=== PATIENT | female | born 1975 | race Caucasian/White ===

== ENCOUNTER 2020-07-14 10:00 | Outpatient (CLI) | payer BC ==
--- NOTE | 2020-07-14 12:26 | RAD ---
LEFT HIP 2 VIEWS: HISTORY: Hip pain status post training for a marathon. FINDINGS: The hip joint appears well preserved. There are no signs of fracture or other bony findings. IMPRESSION: Unremarkable left hip. If clinically indicated, MRI may be helpful in evaluating for a stress-type r eaction. POS: ASHOK
--- NOTE | 2020-07-14 12:30 | RAD ---
AP PELVIS: Date: 07/14/2020 HISTORY: Patient has been training for a marathon, having pain in right hip and groin region. FINDINGS: Pelvic ring is intact. 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 I do not see any signs of any in sufficiency type fracture. There is a subtle calcification adjacent to the greater trochanter. This c ould indicate a calcific tendinitis related to one of the gluteus tendons. Clinical correlation as to exact area of patient's pain. IMPRESSION: Subtle area of calcification adjacent to the greater trochanter of the right hip. This could be an in dicate of calcific tendinitis. Further evaluation with MRI would be helpful in assessing this and to evaluate for the possibility of stress-type injury. POS: ASHOK
--- NOTE | 2020-07-14 12:32 | RAD ---
RIGHT HIP 2 VIEWS: Date: 07/14/2020 HISTORY: Right hip pain, status post marathon training. FINDINGS: I do not see any signs of any stress-type fracture. There is subtle calcification adjacent to the gre ater trochanter which could indicate calcific tendinitis at the gluteus minimus or medius tendon inse rtion. Arthritic changes of the symphysis noted. IMPRESSION: Small focus of calcification adjacent to the greater trochanter. This could indicate calcific tendini tis. No definite signs of any stress fracture. MRI would be helpful in further assessment, particular ly if stress-type injury is suspected. POS: ASHOK
== END 2020-07-14 10:01 | disposition home or self-care (01) ==
LOC: SCSRAD 10:00
PROVIDERS: ATTEND Chiropractor Sports Physician
DX: M24.851 Other specific joint derangements of right hip, not elsewhere classified (principal)
CPT/HCPCS: 72170